=== PATIENT | female | born 2000 | race Caucasian/White ===

== ENCOUNTER 2019-06-14 21:46 | Inpatient (IN) ==
[2019-06-14] MEDS ORDERED: ONDANSETRON 4 MG/2 ML VIAL IV PRN (22:29)
[2019-06-14 22:47] LABS: Basophils # 0.1 10*3/uL (0.0-0.2); Basophils % 0.5 % (0.0-0.8); Eosinophils # 0.1 10*3/uL (0.0-0.87); Eosinophils % 0.4 % (0.00-10.9); Hematocrit 40.5 VOL% (35.7-47.0); Hemoglobin 13.5 GM/DL (12.0-16.0); Immature Granulocytes % 0.9 %; Lymphocytes # 2.3 10*3/uL (1.4-4.0); Lymphocytes % 10.1 % (21.3-54.2); Mean Corpuscular HGB Conc 33.3 GM/DL (32-36); Mean Corpuscular Volume 93.3 FL (87-102); Mean Platelet Volume 10.8 FL (9.6-12.0); Monocytes % 5.7 % (1.7-12.7); Neutrophils % 82.4 % (38.7-73.9); Platelet Count 332 T/CUMM (130-400); Red Blood Count 4.34 MC/CUMM (3.8-5.5); Red Cell Distribution Width 13.1 % (9.3-17.3); White Blood Count 22.9 T/CUMM (4-12)
[2019-06-14 23:06] LABS: Lymphocytes 11 % (20-55); Segmented Neutrophils 86 % (50-85); Total Cells Counted 100
[2019-06-14 23:07] LABS: Platelet Estimate Adequate
[2019-06-14 23:08] LABS: Alanine Aminotransferase 17 U/L (13-56); Albumin 2.7 G/DL (3.4-5.0); Alkaline Phosphatase 151 U/L (45-117); Aspartate Amino Transferase 18 U/L (0-37); Bilirubin,Total < 0.39 MG/DL (0.2-1.0); Blood Urea Nitrogen 8 MG/DL (7-18); Calcium 9.4 MG/DL (8.5-10.1); Estimated Glom Filtration Rate 159 ML/MIN; Glucose 83 MG/DL (74-106); Osmolality,Calculated 266.1 MOS/KG (273-304); Total Protein 7.7 G/DL (6.4-8.3); Uric Acid 3.2 MG/DL (2.6-6.0)
[2019-06-14] MEDS ORDERED: BUTORPHANOL 2 MG/ML VIAL IV PRN (23:34)
[2019-06-15] MEDS ORDERED: NALOXONE 0.4 MG/ML VIAL IV PRN (06:36)
[2019-06-15] MEDS ORDERED: hydrOXYzine HCL 25 MG/1 ML VIAL IM PRN (06:36)
[2019-06-15] MEDS ORDERED: FAMOTIDINE 20 MG/2 ML VIAL IV ONE (06:36)
[2019-06-15] MEDS ORDERED: PROMETHAZINE 25 MG/1 ML VIAL IM PRN (06:36)
[2019-06-15] MEDS ORDERED: diphenhydrAMINE 50 MG/1 ML VIAL IV PRN (06:36)
[2019-06-15] MEDS ORDERED: CITRIC ACID/SODIUM CITRATE 30 ML UDCUP PO ONE (06:36)
[2019-06-15] MEDS ORDERED: ePHEDrine 50 MG/ML AMP IV PRN (06:36)
[2019-06-15] MEDS ORDERED: fentaNYL 2 MCG/ROPIV 0.2% EPID 100 ML EPIDURAL SCH (07:00)
[2019-06-15] MEDS: LACTATED RINGERS 1,000 ML IV SCH ×2 (07:18→08:39)
[2019-06-15] MEDS ORDERED: OXYTOCIN/LR 20 UNIT/1,000 ML BAG IV SCH (08:00)
[2019-06-15] MEDS ORDERED: LACTATED RINGERS 1,000 ML IV ONE (08:28)
[2019-06-15] MEDS ORDERED: LACTATED RINGERS 1,000 ML IV SCH (08:30)
[2019-06-15 09:33] LABS: Apearance,Urine CLEAR (Clear); Bilirubin,Urine Negative (Negative); Blood, Urine Moderate mg/dL (Negative); Glucose,Urine (UA) Negative (Negative); Ketones,Urine Negative (Negative); Mucus,Urine Occasional /LPF (Occasional); Nitrite,Urine Negative (Negative); Protein,Urine Negative; RBC,Urine 1 /HPF (0-4); Squamous Epithelial Cell,Urine Occasional /HPF (0-10); Urine Color Straw (Yellow); Urine Specific Gravity 1.006 (1.001-1.035); Urine Urobilinogen < 2.0 EU/DL (0.2-1.0); WBC,Urine 4 /HPF (0-6)
[2019-06-15] MEDS ORDERED: RHO(D) IMMUNE GLOBULIN 300 MCG SYRINGE IM ONE (13:12)
[2019-06-15] MEDS ORDERED: ACETAMINOPHEN 325 MG TABLET PO PRN (13:12)
[2019-06-15] MEDS ORDERED: BISACODYL 10 MG SUPP RECTAL PRN (13:12)
[2019-06-15] MEDS ORDERED: OXYTOCIN/LR 20 UNIT/1,000 ML BAG IV ONE (13:12)
[2019-06-15] MEDS ORDERED: DIPH/TET/ACEL PERT BOOSTER VACCINE 0.5 ML VIAL IM ONE (13:12)
[2019-06-15] MEDS ORDERED: BENZOCAINE 20%/MENTHOL 0.5% SPRAY 56 GM CAN TOP PRN (13:12)
[2019-06-15] MEDS ORDERED: MEASLES/MUMPS/RUBELLA VACCINE 0.5 ML VIAL SUBCUT ONE (13:12)
[2019-06-15] MEDS ORDERED: ONDANSETRON 4 MG/2 ML VIAL IV PRN (13:12)
[2019-06-15] MEDS ORDERED: HYDROCORTISONE 2.5% RECTAL CREAM 30 GM TUBE TOP PRN (13:12)
[2019-06-15] MEDS ORDERED: WITCH HAZEL PADS 100/JAR TOP PRN (13:12)
[2019-06-15] MEDS ORDERED: LANOLIN 50% CREAM 0.3 OZ TUBE TOP PRN (13:12)
[2019-06-15] MEDS: IBUPROFEN 800 MG TABLET PO PRN (18:02)
[2019-06-15] MEDS: oxyCODONE/ACETAMINOPHEN 5-325 MG TABLET PO PRN (18:03)
[2019-06-15] MEDS: DOCUSATE SODIUM 100 MG CAPSULE PO SCH (21:08)
[2019-06-16] MEDS: IBUPROFEN 800 MG TABLET PO PRN ×3 (04:17→20:19)
[2019-06-16 06:05] LABS: Basophils # 0.1 10*3/uL (0.0-0.2); Basophils % 0.6 % (0.0-0.8); Eosinophils # 0.2 10*3/uL (0.0-0.87); Hematocrit 38.2 VOL% (35.7-47.0); Hemoglobin 12.9 GM/DL (12.0-16.0); Immature Granulocytes % 0.7 %; Immature Granulocytes Absolute 0.14 #; Lymphocytes % 14.2 % (21.3-54.2); Mean Corpuscular HGB Conc 33.8 GM/DL (32-36); Mean Corpuscular Volume 91.2 FL (87-102); Mean Platelet Volume 10.3 FL (9.6-12.0); Neutrophils % 75.5 % (38.7-73.9); Platelet Count 315 T/CUMM (130-400); Red Blood Count 4.19 MC/CUMM (3.8-5.5); White Blood Count 21.3 T/CUMM (4-12)
[2019-06-16] MEDS: oxyCODONE/ACETAMINOPHEN 5-325 MG TABLET PO PRN ×3 (06:13→20:19)
[2019-06-16 06:52] LABS: Microcytosis 1+; Platelet Estimate Normal
[2019-06-16] MEDS: DOCUSATE SODIUM 100 MG CAPSULE PO SCH ×2 (08:33→20:20)
[2019-06-16] MEDS ORDERED: INFLUENZA VIRUS VACCINE 0.5 ML SYRINGE IM ONE (09:00)
[2019-06-17] MEDS: oxyCODONE/ACETAMINOPHEN 5-325 MG TABLET PO PRN (02:38)
[2019-06-17 07:13] VITALS: BP 116/66
[2019-06-17] MEDS: IBUPROFEN 800 MG TABLET PO PRN (08:00)
[2019-06-17] MEDS: DOCUSATE SODIUM 100 MG CAPSULE PO SCH (08:02)
== END 2019-06-17 13:20 | disposition home or self-care (01) | DRG 560 ==
LOC: N.LDOUT 21:46 → N.LD 21:54 → N.OB 06-15 15:24
PROVIDERS: ADMIT Specialist; ATTEND Specialist